=== PATIENT | male | born 1990 | race Caucasian/White ===

== ENCOUNTER 2016-12-10 09:08 | Emergency (ER) | payer SELFPAY ==
--- NOTE | 2016-12-10 10:18 | DIAGNOSTIC IMAGING REPORT ---
PROCEDURE: XR LUMBAR SPINE 2 OR 3 VIEWS INDICATION: TRAUMA/INJURY TECHNIQUE: Three views. COMPARISON: None. FINDINGS: Osseous structures and disc spaces are normal. No evidence of an acute process or fracture. IMPRESSION: 1. Negative lumbar spine.
--- NOTE | 2016-12-10 10:51 | ED NURSING NOTES ---
Clinical Report - Nurses [facility] [address] [place] [address] 12/10/2016 9:11 Patient: MOR CAICEDO TRIAGE Triage time 09:Dec 10 2016. Acuity: LEVEL 3. Chief Complaint: BACK PAIN. MALIKA COMA SCORE: [place] Coma Scale: 15- eyes open spontaneously (4); best verbal response- oriented x 4 (5); best motor response- obeys commands (6). --09:30 Michele Hendrix R.N. 09:25 12/10/16. BP: 112/80. HR: 81. RR: 18. O2 saturation: 99%. Temp: 98.4 F. Pain level now 8/10. --09:30 Michele Hendrix R.N. Weight: 62.5 kg stated. Height/Length: 70 inches Per Patient. BMI: 19.8. --09:29 Michele Hendrix R.N. Medications None. --09:26 Michele Hendrix R.N. Allergies No Known Drug Allergy. --09:27 Michele Hendrix R.N. History Arrived by private vehicle. Historian: patient. Onset. (Friday). ( Was bending over and felt pain in bilat lower back. Is currently having sharp pains on left side shooting into hip.). He has had tingling. He has had trouble walking (from pain). The patient has been limping when trying to walk. No history of recent trauma. Occurred at home. No numbness, weakness, fever or extremity pain. 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 PAST MEDICAL HX: Tetanus status: unknown. Immunizations: status is unknown. SOCIAL HX: Smoker- current status unknown (pt does vape). No alcohol use or drug use. SELF HARM ASSESSMENT: A self harm assessment was performed. The patient answered "no" to the question "Have you recently felt down, depressed, or hopeless?" and "Do you have thoughts of harming or killing yourself?". FALL RISK ASSESSMENT: Fall risk assessment completed. No fall risk identified. NUTRITIONAL RISK ASSESSMENT: The nutritional risk assessment revealed no deficiencies. FUNCTIONAL ASSESSMENT: Functional assessment: no impairments noted. LEARNING NEEDS ASSESSMENT: The learning needs assessment revealed no barriers. ABUSE ASSESSMENT: Abuse assessment: (yes) The patient was asked "Do you feel safe in your home?". SKIN INTEGRITY ASSESSMENT: Skin integrity risk assessment completed. No skin integrity risk identified. --09:30 Michele Hendrix R.N. PROBLEMS: Asthma without status asthmaticus. --09:27 Michele Hendrix R.N. ADDITIONAL SURGERIES: no known surgeries. Interventions ID band on patient. --09:30 Michele Hendrix R.N. PHYSICAL ASSESSMENT Ambulatory to room. GENERAL / NEURO / PSYCH: Alert. Oriented X 4. Appears in pain. RESPIRATORY: Respirations not labored. Chest nontender. Breath sounds within normal limits. CVS: Normal heart rate and rhythm. Capillary refill less than 2 seconds. GI / : Abdomen soft and nontender. Bowel sounds within normal limits. ( Last BM last night). EXTREMITIES: Sensation intact in extremities. ROM of extremities within normal limits. BACK: Soft tissue tenderness in the left lower lumbar paraspinous region. --09:31 Michele Hendrix R.N. NURSING PROGRESS NOTES The initial plan of care for this patient includes an assessment with efforts to address patient positioning, appropriate ambient lighting and comfortable environmental temperature; impairment of the musculoskeletal system. Pulse oximeter and NIBP monitor placed on patient. Patient gowned. Head of bed elevated 90 degrees. Reassurance given. --09:31 Michele Hendrix R.N. 09:49 12/10/2016 Toradol (Ketorolac Tromethamine) IM 60 mg given. Given in the right gluteus yasmin and left gluteus yasmin (split dose). Allergies verified and confirmed 5 rights. --09:49 Michele Hendrix R.N. 11:05. Reassessment after medication administered. He is resting quietly. Overall patient status is improved- he states feels better. GENERAL / NEURO / PSYCH: Alert. Oriented X 4. RESPIRATORY: No respiratory distress. SKIN: Skin is warm and dry. --11:16 Elicia Weaver R.N. DISPOSITION / DISCHARGE Departure time: 1105. Condition at departure: improved. No learning barriers present. Discharge instructions provided and reviewed with the patient. Reviewed medication(s). Prescription(s) given to the patient. Work note given. Patient verbalized understanding. Written instructions provided in Yi. The patient was discharged home and unaccompanied at time of discharge. He left the Emergency Department ambulatory and via private vehicle. FALL RISK ASSESSMENT: Fall risk assessment completed. No fall risk identified. --11:15 Elicia Weaver R.N. 11:05 12/10/16. BP: 104/65. HR: 59. RR: 16. O2 saturation: 100%. Temp: 98.1 F. Pain level now: 12/27. --11:15 Elicia Weaver R.N. Locked/Released at 12/10/2016 11:28 by Elicia Weaver R.N.
--- NOTE | 2016-12-10 10:51 | ED ORDER SUMMARY ---
..... Patient: MOR CAICEDO OrderSheet [facility] VisitID: [id number] [address] [place] [address] 26y, M Registration Date/Time: 12/10/2016 ORDER SHEET Weight: 62.5 kg (stated) Allergies: No Known Drug Allergy GENERAL ORDERS: Lumbar Spine 2 or 3V Urgent (09:43 12/10/2016 Olivia Garcia) (Ack 9:44 Donnell) (10:13 Donnell) MEDICATION ORDERS: Toradol IM 60 mg (NOW) (09:43 12/10/2016 Olivia Garcia) (9:49 Vance R.NRosemarie) IV FLUIDS: ORDER SHEET NOTES: [Electronically signed by Ashok Quevedo Dr. (10:53 12/10/2016)] [Electronically signed by Elicia Weaver R.N. (11:28 12/10/2016)] [Electronically locked/signed by Elicia Weaver R.N. (11:28 12/10/2016)]
--- NOTE | 2016-12-10 10:51 | ED CLINICAL REPORT ---
Clinical Report - Physicians/Mid Levels [facility] [address] [place] [place] [address] 12/10/2016 9:11 Patient: MOR CAICEDO Time Seen: 09:27; initial patient contact. Arrived- By private vehicle. Historian- patient. HISTORY OF PRESENT ILLNESS Chief Complaint: BACK PAIN. Onset- about 2 days ago and it is still present. It was abrupt in onset. It is described as being moderate in degree and in the area of the lower lumbar spine and radiating to the right hip. The quality is noted to be aching. Modifying factors- worsened by bending over and lifting. No bladder dysfunction, bowel dysfunction, sensory loss or motor loss. Patient notes an injury but denies injury to the head. Mechanism of injury- he was bending and fell from a standing position. Similar symptoms previously: None. Recent medical care: Not recently seen/assessed. REVIEW OF SYSTEMS No difficulty with urination or headache. All systems otherwise negative, except as recorded above. PAST HISTORY Asthma without status asthmaticus. Surgeries: No history of previous surgery. SOCIAL HISTORY Smoker- current status unknown. No alcohol use or drug use. ADDITIONAL NOTES The nursing notes have been reviewed with agreement regarding the chief complaint, PMH and patient medications and allergies. PHYSICAL EXAM Appearance: Alert. No acute distress. CVS: Heart sounds normal. No cardiac murmur. Respiratory: No respiratory distress. Breath sounds normal. Back: Mild muscle spasm of the right and left posterior back. Mild soft tissue tenderness in the right lower and left lower lumbar area. No vertebral point tenderness. Neuro: Oriented X 3. No motor deficit. No sensory deficit. Straight leg raising: negative on the right and negative on the left. Reflexes normal. LABS, X-RAYS, AND EKG LS-Spine X-rays: Soft tissues normal. No fracture or subluxation. No bony lesion. Views: AP and lateral. Technique: good. The X-rays were independently viewed by me and interpreted contemporaneously by me. Prior films were not available for comparison. Interpretation time: 10:15. PROGRESS AND PROCEDURES Disposition: Discharged home in good and improved condition. Condition: good. CLINICAL IMPRESSION Acute lumbar strain. INSTRUCTIONS No lifting greater than 10 lbs until released. Do not work today. Prescription Medications: Baclofen 20 mg: take 1 orally every 8 hours. Dispense thirty (30). No refills. Diclofenac 50 mg tablets: take 1 tablet orally every 8 hours as needed for pain or stiffness. Dispense thirty (30). No refill. Follow-up: Screening today revealed the patient's blood pressure to be in the pre-hypertensive range. The patient should follow up with a primary care provider for blood pressure management. Follow-up with: [facility], , , [address], , [place], [address] Follow up in about three days if not better. Call for an appointment. (Electronically signed by Ashok Quevedo Dr. 12/10/2016 10:53)
--- NOTE | 2016-12-10 10:51 | ED ORDER SUMMARY ---
..... Patient: MOR CAICEDO OrderSheet [facility] VisitID: [id number] [address] [place] [address] 26y, M Registration Date/Time: 12/10/2016 ORDER SHEET Weight: 62.5 kg (stated) Allergies: No Known Drug Allergy GENERAL ORDERS: Lumbar Spine 2 or 3V Urgent (09:43 12/10/2016 Olivia Garcia) (Ack 9:44 Donnell) (10:13 Donnell) MEDICATION ORDERS: Toradol IM 60 mg (NOW) (09:43 12/10/2016 Olivia Garcia) (9:49 Vance R.NRosemarie) IV FLUIDS: ORDER SHEET NOTES: [Electronically signed by Ashok Quevedo Dr. (10:53 12/10/2016)] [Electronically signed by Elicia Weaver R.N. (11:28 12/10/2016)] [Electronically locked/signed by Elicia Weaver R.N. (11:28 12/10/2016)]
--- NOTE | 2016-12-10 10:51 | ED CLINICAL REPORT ---
Clinical Report - Physicians/Mid Levels [facility] [address] [place] [address] 12/10/2016 9:11 Patient: MOR CAICEDO Time Seen: 09:27; initial patient contact. Arrived- By private vehicle. Historian- patient. HISTORY OF PRESENT ILLNESS Chief Complaint: BACK PAIN. Onset- about 2 days ago and it is still present. It was abrupt in onset. It is described as being moderate in degree and in the area of the lower lumbar spine and radiating to the right hip. The quality is noted to be aching. Modifying factors- worsened by bending over and lifting. No bladder dysfunction, bowel dysfunction, sensory loss or motor loss. Patient notes an injury but denies injury to the head. Mechanism of injury- he was bending and fell from a standing position. Similar symptoms previously: None. Recent medical care: Not recently seen/assessed. REVIEW OF SYSTEMS No difficulty with urination or headache. All systems otherwise negative, except as recorded above. PAST HISTORY Asthma without status asthmaticus. Surgeries: No history of previous surgery. SOCIAL HISTORY Smoker- current status unknown. No alcohol use or drug use. ADDITIONAL NOTES The nursing notes have been reviewed with agreement regarding the chief complaint, PMH and patient medications and allergies. PHYSICAL EXAM Appearance: Alert. No acute distress. CVS: Heart sounds normal. No cardiac murmur. Respiratory: No respiratory distress. Breath sounds normal. Back: Mild muscle spasm of the right and left posterior back. Mild soft tissue tenderness in the right lower and left lower lumbar area. No vertebral point tenderness. Neuro: Oriented X 3. No motor deficit. No sensory deficit. Straight leg raising: negative on the right and negative on the left. Reflexes normal. LABS, X-RAYS, AND EKG LS-Spine X-rays: Soft tissues normal. No fracture or subluxation. No bony lesion. Views: AP and lateral. Technique: good. The X-rays were independently viewed by me and interpreted contemporaneously by me. Prior films were not available for comparison. Interpretation time: 10:15. PROGRESS AND PROCEDURES Disposition: Discharged home in good and improved condition. Condition: good. CLINICAL IMPRESSION Acute lumbar strain. INSTRUCTIONS No lifting greater than 10 lbs until released. Do not work today. Prescription Medications: Baclofen 20 mg: take 1 orally every 8 hours. Dispense thirty (30). No refills. Diclofenac 50 mg tablets: take 1 tablet orally every 8 hours as needed for pain or stiffness. Dispense thirty (30). No refill. Follow-up: Screening today revealed the patient's blood pressure to be in the pre-hypertensive range. The patient should follow up with a primary care provider for blood pressure management. Follow-up with: [facility], , , [address], , [place], [address] Follow up in about three days if not better. Call for an appointment. (Electronically signed by Ashok Quevedo Dr. 12/10/2016 10:53)
--- NOTE | 2016-12-10 11:28 | ED MAR SUMMARY ---
..... Medication Administration Record [facility] [address] [place] [address] Patient: MOR CAICEDO Visit ID: [id number] 26y, M Weight: 62.5 kg Height/Length: 70 in BMI: 19.8 ALLERGIES: No Known Drug Allergy Given 09:49 12/10/2016 Michele Hendrix R.N. Medication Administered: TORADOL [IM] (KETOROLAC TROMETHAMINE), Dose: 60 mg IM. Medication Ordered: Toradol IM 60 mg (NOW).
--- NOTE | 2016-12-10 11:28 | ED MED RECONCILIATION SUMMARY ---
Patient: MOR CAICEDO Medication Reconciliation Report [facility] VisitID: [id number] [address] [place] [address] 26y, M Registration Date/Time: 12/10/2016 Weight: 62.5 kg Height/Length: 70 in. BMI: 19.8 ALLERGIES: No Known Drug Allergy The patient's Home Medications are listed below: NONE. The source(s) of the original Home Medication information: Not obtained. The following Medications were given to the patient in the Emergency Department: Toradol [IM] IM 60 mg, administered: 12/10/2016 9:49:00 AM The following Medications were prescribed to the patient: Baclofen 20 mg: take 1 orally every 8 hours. Dispense thirty (30). No refills. -- Ashok Quevedo Dr. Diclofenac 50 mg tablets: take 1 tablet orally every 8 hours as needed for pain or stiffness. Dispense thirty (30). No refill. -- Ashok Quevedo Dr.
--- NOTE | 2016-12-10 11:28 | ED MED RECONCILIATION SUMMARY ---
Patient: MOR CAICEDO Medication Reconciliation Report [facility] VisitID: [id number] [address] [place] [address] 26y, M Registration Date/Time: 12/10/2016 Weight: 62.5 kg Height/Length: 70 in. BMI: 19.8 ALLERGIES: No Known Drug Allergy The patient's Home Medications are listed below: NONE. The source(s) of the original Home Medication information: Not obtained. The following Medications were given to the patient in the Emergency Department: Toradol [IM] IM 60 mg, administered: 12/10/2016 9:49:00 AM The following Medications were prescribed to the patient: Baclofen 20 mg: take 1 orally every 8 hours. Dispense thirty (30). No refills. -- Ashok Quevedo Dr. Diclofenac 50 mg tablets: take 1 tablet orally every 8 hours as needed for pain or stiffness. Dispense thirty (30). No refill. -- Ashok Quevedo Dr.
--- NOTE | 2016-12-10 11:28 | ED MAR SUMMARY ---
..... Medication Administration Record [facility] [address] [place] [address] Patient: MOR CAICEDO Visit ID: [id number] 26y, M Weight: 62.5 kg Height/Length: 70 in BMI: 19.8 ALLERGIES: No Known Drug Allergy Given 09:49 12/10/2016 Michele Hendrix R.N. Medication Administered: TORADOL [IM] (KETOROLAC TROMETHAMINE), Dose: 60 mg IM. Medication Ordered: Toradol IM 60 mg (NOW).
--- NOTE | 2016-12-10 11:28 | ED DISCHARGE INSTRUCTIONS ---
Patient: MOR CAICEDO General Instructions [facility] VisitID: [id number] [address], [place] [address] 26y, M Registration Date/Time: 12/10/2016 Acute lumbar strain. INSTRUCTIONS No lifting greater than 10 lbs until released. Do not work today. Prescription Medications: Baclofen 20 mg: take 1 orally every 8 hours. Dispense thirty (30). No refills. Diclofenac 50 mg tablets: take 1 tablet orally every 8 hours as needed for pain or stiffness. Dispense thirty (30). No refill. Follow-up: Screening today revealed the patient's blood pressure to be in the pre-hypertensive range. The patient should follow up with a primary care provider for blood pressure management. Follow-up with: [facility], , , [address], , [place], [address] Follow up in about three days if not better. Call for an appointment. ADDITIONAL INFORMATION Back Pain [Acute Or Chronic] Back pain is usually caused by an injury to the muscles or ligaments of the spine. Sometimes the disks that separate each bone in the spine may bulge and cause pain by pressing on a nearby nerve. Back pain may also appear after a sudden twisting/bending force (such as in a car accident), after a simple awkward movement, or lifting something heavy with poor body positioning. In either case, muscle spasm is often present and adds to the pain. Acute back pain usually gets better in one to two weeks. Back pain related to disk disease, arthritis in the spinal joints or spinal stenosis (narrowing of the spinal canal) can become chronic and last for months or years. Unless you had a physical injury (for example, a car accident or fall) X-rays are usually not ordered for the initial evaluation of back pain. If pain continues and does not respond to medical treatment, x-rays and other tests may be performed at a later time. Home Care: You may need to stay in bed the first few days. But, as soon as possible, begin sitting or walking to avoid problems with prolonged bed rest (muscle weakness, worsening back stiffness and pain, blood clots in the legs). When in bed, try to find a position of comfort. A firm mattress is best. Try lying flat on your back with pillows under your knees. You can also try lying on your side with your knees bent up towards your chest and a pillow between your knees. Avoid prolonged sitting. This puts more stress on the lower back than standing or walking. During the first two days after injury, apply an ICE PACK to the painful area for 20 minutes every 2-4 hours. This will reduce swelling and pain. HEAT (hot shower, hot bath or heating pad) works well for muscle spasm. You can start with ice, then switch to heat after two days. Some patients feel best alternating ice and heat treatments. Use the one method that feels the best to you. You may use acetaminophen (Tylenol) or ibuprofen (Motrin, Advil) to control pain, unless another pain medicine was prescribed. [NOTE: If you have chronic liver or kidney disease or ever had a stomach ulcer or GI bleeding, talk with your doctor before using these medicines.] Be aware of safe lifting methods and do not lift anything over 15 pounds until all the pain is gone. Follow Up with your doctor or this facility if your symptoms do not start to improve after one week. Physical therapy may be needed. [NOTE: If X-rays were taken, they will be reviewed by a radiologist. You will be notified of any new findings that may affect your care.] Get Prompt Medical Attention if any of the following occur: Pain becomes worse or spreads to your legs Weakness or numbness in one or both legs Loss of bowel or bladder control Numbness in the groin or genital area You have been given the following additional information: Back Pain (Acute Or Chronic) No lifting greater than 10 lbs until released. Do not work today. (Electronically signed by Ashok Quevedo Dr. 12/10/2016 10:53)
--- NOTE | 2016-12-10 11:28 | ED DISCHARGE INSTRUCTIONS ---
Patient: MOR CAICEDO General Instructions [facility] VisitID: [id number] [address], [place] [address] 26y, M Registration Date/Time: 12/10/2016 Acute lumbar strain. INSTRUCTIONS No lifting greater than 10 lbs until released. Do not work today. Prescription Medications: Baclofen 20 mg: take 1 orally every 8 hours. Dispense thirty (30). No refills. Diclofenac 50 mg tablets: take 1 tablet orally every 8 hours as needed for pain or stiffness. Dispense thirty (30). No refill. Follow-up: Screening today revealed the patient's blood pressure to be in the pre-hypertensive range. The patient should follow up with a primary care provider for blood pressure management. Follow-up with: [facility], , , [address], , [place], [address] Follow up in about three days if not better. Call for an appointment. ADDITIONAL INFORMATION Back Pain [Acute Or Chronic] Back pain is usually caused by an injury to the muscles or ligaments of the spine. Sometimes the disks that separate each bone in the spine may bulge and cause pain by pressing on a nearby nerve. Back pain may also appear after a sudden twisting/bending force (such as in a car accident), after a simple awkward movement, or lifting something heavy with poor body positioning. In either case, muscle spasm is often present and adds to the pain. Acute back pain usually gets better in one to two weeks. Back pain related to disk disease, arthritis in the spinal joints or spinal stenosis (narrowing of the spinal canal) can become chronic and last for months or years. Unless you had a physical injury (for example, a car accident or fall) X-rays are usually not ordered for the initial evaluation of back pain. If pain continues and does not respond to medical treatment, x-rays and other tests may be performed at a later time. Home Care: You may need to stay in bed the first few days. But, as soon as possible, begin sitting or walking to avoid problems with prolonged bed rest (muscle weakness, worsening back stiffness and pain, blood clots in the legs). When in bed, try to find a position of comfort. A firm mattress is best. Try lying flat on your back with pillows under your knees. You can also try lying on your side with your knees bent up towards your chest and a pillow between your knees. Avoid prolonged sitting. This puts more stress on the lower back than standing or walking. During the first two days after injury, apply an ICE PACK to the painful area for 20 minutes every 2-4 hours. This will reduce swelling and pain. HEAT (hot shower, hot bath or heating pad) works well for muscle spasm. You can start with ice, then switch to heat after two days. Some patients feel best alternating ice and heat treatments. Use the one method that feels the best to you. You may use acetaminophen (Tylenol) or ibuprofen (Motrin, Advil) to control pain, unless another pain medicine was prescribed. [NOTE: If you have chronic liver or kidney disease or ever had a stomach ulcer or GI bleeding, talk with your doctor before using these medicines.] Be aware of safe lifting methods and do not lift anything over 15 pounds until all the pain is gone. Follow Up with your doctor or this facility if your symptoms do not start to improve after one week. Physical therapy may be needed. [NOTE: If X-rays were taken, they will be reviewed by a radiologist. You will be notified of any new findings that may affect your care.] Get Prompt Medical Attention if any of the following occur: Pain becomes worse or spreads to your legs Weakness or numbness in one or both legs Loss of bowel or bladder control Numbness in the groin or genital area You have been given the following additional information: Back Pain (Acute Or Chronic) No lifting greater than 10 lbs until released. Do not work today. (Electronically signed by Ashok Quevedo Dr. 12/10/2016 10:53)
== END 2016-12-10 11:05 | disposition home or self-care (01) ==
LOC: ED SRH 09:08
DX: S39.012A Strain of muscle, fascia and tendon of lower back, initial encounter (principal); X58.XXXA Exposure to other specified factors, initial encounter; Y93.9 Activity, unspecified; Y92.009 Unspecified place in unspecified non-institutional (private) residence as the place of occurrence of the external cause; Y99.9 Unspecified external cause status